=== PATIENT | male | born 1960 | race Caucasian/White ===

== ENCOUNTER 2017-09-19 16:41 | Observation (INO) | payer SELFPAY ==
--- NOTE | 2017-09-19 16:37 | EDPHY ---
H & P HPI/ROS: CHIEF COMPLAINT: Syncope vs. Seizure HISTORY OF PRESENT ILLNESS: This patient is a 57 year old male arriving via EMS for evaluation of a possible seizure or syncopal episode shortly prior to arrival. He was at his mother's service and stood abruptly with a yelp, then fell to the ground unresponsive. Witnesses describe some seizure-like activity. On EMS arrival, the patient had GCS of 9, minimal purposeful movements. EMS did not witness any seizure activity. Per friends at the scene, the patient takes muscle relaxants and was recently prescribed antibiotics for bronchitis. He does not have known history of seizures. EMS placed the patient on 2L O2 by nasal cannula to maintain 94% SpO2. BGL 122. Heart tracing showed sinus tachycardia. EMS crews did not observe any trauma from the patient's fall. HPI primarily obtained via EMS report. Further HPI unobtainable due to patient presentation. REVIEW OF SYSTEMS: A 10 point review of systems was performed and is negative with the exception of the elements mentioned in the history of present illness. Past Medical/Surgical History: Prior T12 compression fx Social History: Visiting from [place]. Brother at bedside. Occasional alcohol, no drugs Physical Exam: General Appearance: Alert. See neurologic findings. Eyes: Pupils equal and round, no conjunctival pallor or injection ENT, Mouth: Mucous membranes moist Neck: Normal inspection Respiratory: Lungs are clear to auscultation Cardiovascular: Regular rate and rhythm Gastrointestinal: Abdomen is soft and non-tender Neurological: Does not follow commands. Does not look at me when I talk. Moves all extremities. Skin: Warm and dry, no rash Extremities: Nontender, no pedal edema Psychiatric: Mood and affect normal Constitutional: Initial Vital Signs Temperature (C) 36.6 C 09/19/17 16:41 Heart Rate 97 09/19/17 16:41 Respiratory Rate 16 09/19/17 16:41 Blood Pressure 124/97 H 09/19/17 16:41 O2 Sat (%) 93 09/19/17 16:41 O2 Delivery Mode Blowby O2 (L/minute) 2 Allergies/Adverse Reactions: No Known Allergies Allergy (Unverified 09/19/17 19:03) Home Medications: Medication Instructions Recorded NK [No Known Home Meds] 09/19/17 Medical Decision Making - Diagnostics EKG Interpretation: EKG interpreted by me reveals sinus rhythm, rate 99, LVH. Interpretation: sinus rhythm. Imaging Results: Imaging Impressions Head CT 09/19/17 16:48 Impression: There is no acute intracranial abnormality identified on this unenhanced CT evaluation. If there is further clinical concern regarding the patient's symptoms, MR imaging is suggested, if not otherwise contraindicated. Findings were discussed with LU MALDONADO MD at 17:45, on 09/19/2017. Chest X-Ray 09/19/17 17:00 Impression: 1. There is no focal infiltrate or abnormal cardiac configuration. 2. Mild T4 and moderate T12 compression deformities. Clinical correlation is suggested. Chest/Thorax CTA 09/19/17 18:40 Impression: 1. There is no CT evidence for pulmonary artery embolic disease. 2. Mild posterobasilar subsegmental atelectasis. 3. Old mild T4 and moderate T12 compression fracture deformities. Findings were discussed with LU MALDONADO MD at 19:13, on 09/19/2017. Imaging: Discussed imaging studies w/ call center coordinator Radiologist, I viewed and interpreted images myself ED Course/Re-evaluation: 16:40 Met EMS at bedside. 16:46 Bedside EKG shows sinus rhythm. 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 On exam, the patient is alert but does not follow commands or look at me when I talk. IV established. Plan for CT head, labs including CBC, chemistries. 16:55 Patient's brother at bedside. His story concurs with the EMS report: The patient was at back of the judaism and stood with a loud exclamation, then fell stiffly face-first onto the floor and had witnessed seizure activity. The patient drove from [place] one week ago for the services. He was ill at that time with cold symptoms and began taking antibiotics Sunday. He did not seem to be getting better, and has had a raspy cough and high fever. His brother is unsure if he was tested for influenza. Plan for chest x-ray, flu swab. 1800: pt back to normal mental status, answers questions appropriately. Non- toxic appearing, neck supple, meningitis/encephalitis considered, but I doubt, given lack of HANSON, afebrile, normal neuro exam and normal mental status. 1830: CXR d/w pt. he has a known T12 compression fx. Also has new pain between scapulas, query new T4 compression fx. D-dimer elevated at 2.56. Given elevated d-dimer, SOB, will order CTA chest, will eval for comp fx as well. 19:[address] Will, radiologist. CTA negative for PE or other acute processes. T12 and T4 fractures are both old. 19:34 Reassessed patient. He remains at his normal mental status and is well appearing. Plan to d/c home in good condition. He plans to remain in [place] for several weeks, so I provided a local neurology referral. He understands he may not drive until followup with neuro. Further followup and return precautions discussed. He is comfortable with this plan. 19:45 As patient was getting ready for d/c, he had a second seizure. He fell forward from a seated position, striking his face on the ground. Nasal abrasion , small epistaxis, stopped quickly. He will be admitted to the hospital. Suction and airway management, oxygen placed. Per brother, he went to the bathroom and when he returned, the patient screamed and was siting in chair, fell forward. Keppra 1gm IV given. 20:07 Consulted with hospitalist service. Dr. Johnston accepts admission for seizure. 2049: still post-ictal, vital signs normal. He had a prolonged post-ictal period after the first seizure, I suspect he'll have a prolonged post-ictal period again. Differential Diagnosis: Differential diagnosis includes though it is not limited to status epilepticus, hypoglycemia, intracranial hemorrhage, CVA, benzodiazepine withdrawal, alcohol withdrawal, epilepsy, encephalitis. Critical Care Time: I spent a total of 35 minutes of critical care time in obtaining history, performing a physical exam, bedside monitoring of interventions, collecting and interpreting tests and discussion with consultants but not including time spent performing procedures. Organ at risk: brain - Data Points Laboratory Results: Laboratory Results 09/19/17 16:49 09/19/17 16:49 09/19/17 09/19/17 09/19/17 18:04 17:05 16:49 WBC RBC Hgb POC Hgb Hct POC Hct MCV MCH MCHC RDW Plt Count MPV Neut % (Auto) Lymph % (Auto) [place] % (Auto) Eos % (Auto) Baso % (Auto) Nucleat RBC Rel Count Absolute Neuts (auto) Absolute Lymphs (auto) Absolute Monos (auto) Absolute Eos (auto) Absolute Basos (auto) Absolute Nucleated RBC Immature Gran % Seg Neutrophils % Band Neutrophils % Lymphocytes % Monocytes % Eosinophils % Immature Gran # Absolute Seg Neuts Absolute Band Neuts Absolute Lymphocytes Absolute Monocytes Absolute Eosinophils RBC/WBC/PLT Morphology Platelet Estimate D-Dimer 2.56 ug/mLFEU H ug/mLFEU (0.00-0.50) POC Sodium Sodium 147 mEq/L H mEq/L (135-145) POC Potassium Potassium 4.2 mEq/L mEq/L (3.5-5.2) POC Chloride Chloride 101 mEq/L mEq/L (97-110) Carbon Dioxide 12 mEq/l L mEq/l (22-31) Anion Gap 34 mEq/L H mEq/L (8-16) POC BUN BUN 25 mg/dL H mg/dL (7-23) Creatinine 1.2 mg/dL mg/dL (0.7-1.3) POC Creatinine Estimated GFR > 60 Glucose 117 mg/dL H mg/dL (70-100) POC Glucose Calcium 10.2 mg/dL mg/dL (8.5-10.4) Nasal Influenza A PCR NEGATIVE FOR FLU A (NEGATIVE) Nasal Influenza B PCR NEGATIVE FOR FLU B (NEGATIVE) 09/19/17 09/19/17 16:49 16:40 WBC 12.87 10^3/uL H 10^3/uL (3.80-9.50) RBC 5.88 10^6/uL 10^6/uL (4.40-6.38) Hgb 16.9 g/dL g/dL (13.7-17.5) POC Hgb 16.7 gm/dL gm/dL (13.7-17.5) Hct 51.3 % H % (40.0-51.0) POC Hct 49 % % (40-51) MCV 87.2 fL fL (81.5-99.8) MCH 28.7 pg pg (27.9-34.1) MCHC 32.9 g/dL g/dL (32.4-36.7) RDW 12.3 % % (11.5-15.2) Plt Count 250 10^3/uL 10^3/uL (150-400) MPV 10.7 fL fL (8.7-11.7) Neut % (Auto) Not Reported Lymph % (Auto) Not Reported [place] % (Auto) Not Reported Eos % (Auto) Not Reported Baso % (Auto) Not Reported Nucleat RBC Rel Count 0.0 % % (0.0-0.2) Absolute Neuts (auto) Not Reported Absolute Lymphs (auto) Not Reported Absolute Monos (auto) Not Reported Absolute Eos (auto) Not Reported Absolute Basos (auto) Not Reported Absolute Nucleated RBC 0.00 10^3/uL 10^3/uL (0-0.01) Immature Gran % Not Reported Seg Neutrophils % 33 % % Band Neutrophils % 9 % % Lymphocytes % 47 % % Monocytes % 9 % % Eosinophils % 2 % % Immature Gran # Not Reported Absolute Seg Neuts 4.25 10^/uL 10^/uL (1.70-6.50) Absolute Band Neuts 1.16 10^3/uL H 10^3/uL (0.00-0.70) Absolute Lymphocytes 6.05 10^3/uL H 10^3/uL (1.00-3.00) Absolute Monocytes 1.16 10^3/uL H 10^3/uL (0.30-0.80) Absolute Eosinophils 0.26 10^3/uL 10^3/uL (0.03-0.40) RBC/WBC/PLT Morphology NORMAL (NORMAL) Platelet Estimate ADEQUATE (ADEQ) D-Dimer POC Sodium 143 mEq/L mEq/L (135-145) Sodium POC Potassium 3.6 mEq/L mEq/L (3.3-5.0) Potassium POC Chloride 105 mEq/L mEq/L (97-110) Chloride Carbon Dioxide Anion Gap POC BUN 30 mg/dL H mg/dL (7-23) BUN Creatinine POC Creatinine 1.1 mg/dL mg/dL (0.7-1.3) Estimated GFR Glucose POC Glucose 115 mg/dL H mg/dL (70-100) Calcium Nasal Influenza A PCR Nasal Influenza B PCR Medications Given: Discontinued Medications Sodium Chloride (Ns) 1,000 mls @ 0 mls/hr IV ONCE ONE; Wide Open PRN Reason: Protocol Stop: 09/19/17 17:11 Last Admin: 09/19/17 17:16 Dose: 1,000 mls Levetiracetam 1,000 mg/ Sodium (Chloride) 110 mls @ 440 mls/hr IV EDNOW ONE Stop: 09/19/17 20:02 Last Admin: 09/19/17 20:05 Dose: 110 mls Point of Care Test Results: 09/19/17 16:40 POC Sodium 143 POC Potassium 3.6 POC Chloride 105 POC BUN 30 H POC Creatinine 1.1 POC Glucose 115 H Departure - Departure Disposition: [facility] Inpatient Acute Clinical Impression: New onset seizure Condition: Fair Report Scribed for: Lu Maldonado Report Scribed by: Saniya Bustamante Date of Report: 09/19/17 Time of Report: 16:36 Physician Review and Approval Statement: 09/19/17 16:37 Portions of this note were transcribed by a certified medical asst. I personally performed a history, physical exam, medical decision making, and confirmed accuracy of information the transcribed note.
--- NOTE | 2017-09-19 16:50 | CPEKG ---
Heart Rate: 99 RR Interval: 606 P-R Interval: 168 QRSD Interval: 98 QT Interval: 372 QTC Interval: 478 P [place]: 44 QRS [place]: -19 T Wave [place]: 5 EKG Severity - ABNORMAL ECG - EKG Impression: SINUS RHYTHM EKG Impression: PROBABLE LEFT ATRIAL ABNORMALITY EKG Impression: LEFT VENTRICULAR HYPERTROPHY EKG Impression: BORDERLINE PROLONGED QT INTERVAL Electronically Signed By: Lu Maldonado 19-Sep-2017 17:04:49
[2017-09-19 17:01] LABS: PLATELET COUNT 250 10^3/uL (150-400)
[2017-09-19] MEDS ORDERED: NS 1,000 ML IV ONE (17:10)
[2017-09-19] MEDS ORDERED: IOPAMIDOL (ISOVUE 370) 100 ML BTL IV ONE (18:44)
[2017-09-19] MEDS ORDERED: LORazepam 2 MG/ML INJ ONE (19:46)
[2017-09-19] MEDS ORDERED: levETIRAcetam 1,000 MG in NS 100 ML IV ONE (19:48)
[2017-09-19] MEDS ORDERED: PROTOCOL MAGNESIUM 1 DOSE IV PRN (20:50)
[2017-09-19] MEDS ORDERED: PROTOCOL POTASSIUM 1 DOSE MISC PRN (20:50)
[2017-09-19] MEDS ORDERED: LORazepam 2 MG/ML INJ IVP PRN (20:53)
[2017-09-19] MEDS ORDERED: ACETAMINOPHEN 325 MG TAB PO PRN (20:55)
[2017-09-19] MEDS ORDERED: NS 1,000 ML IV SCH (21:00)
--- NOTE | 2017-09-19 21:21 | PDGENHP ---
History and Physical - Chief Complaint seizure - History of Present Illness This patient is a 57 year old male who had a witnessed seizure while a his mother's service. He was postictal in the E.D. and after he returned to baseline, he was about to be discharged and had another generalized seizure lasting 4 minutes in the E.D. Keppra IV was given. About a week ago he was treated for bronchitis with Doxycycline and he had been having some back discomfort and was started on muscle relaxants. Unfortunately the pt is still confused and hx is obtained from the pts brother and his nieces. He is awake. He does not have any hx of ETOH use, no urinary sx's, no cv sx's, does not feel SOB any more. CT brain was negative. He denies HANSON. His neck was felt to be supple in the E.D. He does not have focal weakness there was no e/o of hypoglycemia, or electrolyte abnormality. Mg has not been checked. UTOX has not been checked. Past Medical/Surgical History: Prior T12 compression fx, shoulder surgery x 2, no chronic medical conditions Social History: No tobacco or ETOH, no illicits FmHx: No hx of seizure d/o History Information - Allergies/Home Medication List Allergies/Adverse Reactions: No Known Allergies Allergy (Unverified 09/19/17 19:03) Home Medications: NK [No Known Home Meds] 09/19/17 [Last Taken Unknown] I have personally reviewed and updated: medical history, social history - Social History Smoking Status: Unknown if ever smoked Review of Systems Review of Systems: ROS: 10pt was reviewed & negative except for what was stated in HPI & below Physical Exam Physical Exam: Temp Pulse Resp BP Pulse Ox 36.1 C 91 9 L 121/84 H 98 09/19/17 21:02 09/19/17 21:02 09/19/17 21:02 09/19/17 21:02 09/19/17 20:07 O2 (L/minute) 2 Constitutional: no apparent distress, appears nourished Eyes: PERRL, EOMI Ears, Nose, Mouth, Throat: moist mucous membranes, hearing normal Cardiovascular: regular rate and rhythym, No edema Respiratory: no respiratory distress Gastrointestinal: normoactive bowel sounds Genitourinary: no bladder fullness Skin: warm Musculoskeletal: other (neck is supple. he does not appear to have meningeal signs) Neurologic: No AAOx3 Psychiatric: encephalopathic Lymph, Heme, Immunologic: No petechiae Lab Data & Imaging Review 09/19/17 16:49 09/19/17 16:49 WBC 12.87 10^3/uL (3.80-9.50) H 09/19/17 16:49 RBC 5.88 10^6/uL (4.40-6.38) 09/19/17 16:49 Hgb 16.9 g/dL (13.7-17.5) 09/19/17 16:49 POC Hgb 16.7 gm/dL (13.7-17.5) 09/19/17 16:40 Hct 51.3 % (40.0-51.0) H 09/19/17 16:49 POC Hct 49 % (40-51) 09/19/17 16:40 MCV 87.2 fL (81.5-99.8) 09/19/17 16:49 MCH 28.7 pg (27.9-34.1) 09/19/17 16:49 MCHC 32.9 g/dL (32.4-36.7) 09/19/17 16:49 RDW 12.3 % (11.5-15.2) 09/19/17 16:49 Plt Count 250 10^3/uL (150-400) 09/19/17 16:49 MPV 10.7 fL (8.7-11.7) 09/19/17 16:49 Neut % (Auto) Not Reported 09/19/17 16:49 Lymph % (Auto) Not Reported 09/19/17 16:49 [place] % (Auto) Not Reported 09/19/17 16:49 Eos % (Auto) Not Reported 09/19/17 16:49 Baso % (Auto) Not Reported 09/19/17 16:49 Nucleat RBC Rel Count 0.0 % (0.0-0.2) 09/19/17 16:49 Absolute Neuts (auto) Not Reported 09/19/17 16:49 Absolute Lymphs (auto) Not Reported 09/19/17 16:49 Absolute Monos (auto) Not Reported 09/19/17 16:49 Absolute Eos (auto) Not Reported 09/19/17 16:49 Absolute Basos (auto) Not Reported 09/19/17 16:49 Absolute Nucleated RBC 0.00 10^3/uL (0-0.01) 09/19/17 16:49 Immature Gran % Not Reported 09/19/17 16:49 Seg Neutrophils % 33 % 09/19/17 16:49 Band Neutrophils % 9 % 09/19/17 16:49 Lymphocytes % 47 % 09/19/17 16:49 Monocytes % 9 % 09/19/17 16:49 Eosinophils % 2 % 09/19/17 16:49 Immature Gran # Not Reported 09/19/17 16:49 Absolute Seg Neuts 4.25 10^/uL (1.70-6.50) 09/19/17 16:49 Absolute Band Neuts 1.16 10^3/uL (0.00-0.70) H 09/19/17 16:49 Absolute Lymphocytes 6.05 10^3/uL (1.00-3.00) H 09/19/17 16:49 Absolute Monocytes 1.16 10^3/uL (0.30-0.80) H 09/19/17 16:49 Absolute Eosinophils 0.26 10^3/uL (0.03-0.40) 09/19/17 16:49 RBC/WBC/PLT Morphology NORMAL (NORMAL) 09/19/17 16:49 Platelet Estimate ADEQUATE (ADEQ) 09/19/17 16:49 D-Dimer 2.56 ug/mLFEU (0.00-0.50) H 09/19/17 18:04 POC Sodium 143 mEq/L (135-145) 09/19/17 16:40 Sodium 147 mEq/L (135-145) H 09/19/17 16:49 POC Potassium 3.6 mEq/L (3.3-5.0) 09/19/17 16:40 Potassium 4.2 mEq/L (3.5-5.2) 09/19/17 16:49 POC Chloride 105 mEq/L (97-110) 09/19/17 16:40 Chloride 101 mEq/L (97-110) 09/19/17 16:49 Carbon Dioxide 12 mEq/l (22-31) L 09/19/17 16:49 Anion Gap 34 mEq/L (8-16) H 09/19/17 16:49 POC BUN 30 mg/dL (7-23) H 09/19/17 16:40 BUN 25 mg/dL (7-23) H 09/19/17 16:49 Creatinine 1.2 mg/dL (0.7-1.3) 09/19/17 16:49 POC Creatinine 1.1 mg/dL (0.7-1.3) 09/19/17 16:40 Estimated GFR > 60 09/19/17 16:49 Glucose 117 mg/dL (70-100) H 09/19/17 16:49 POC Glucose 115 mg/dL (70-100) H 09/19/17 16:40 Calcium 10.2 mg/dL (8.5-10.4) 09/19/17 16:49 Nasal Influenza A PCR NEGATIVE FOR FLU A (NEGATIVE) 09/19/17 17:05 Nasal Influenza B PCR NEGATIVE FOR FLU B (NEGATIVE) 09/19/17 17:05 Assessment & Plan Assessment: #New onset seizure with post ictal state #borderline Long QT syndrome #Leukocytosis #LVH per EKG, ?HTN Plan: observation w/u for etiology, Urine tox, ETOH, Mg, LFT's Neuro consult tomorrow, I have not notified them. Will await recommendations including EEG MRI Will hold off on LP, if recurrence, would obtain IVF Cont Keppra Benzo's PRN
[2017-09-19] MEDS: levETIRAcetam 500 MG in NS 100 ML IV SCH (22:04)
[2017-09-20 05:34] LABS: PLATELET COUNT 157 10^3/uL (150-400)
[2017-09-20 08:02] VITALS: RESP 12
[2017-09-20] MEDS: levETIRAcetam 500 MG in NS 100 ML IV SCH (08:40)
[2017-09-20] MEDS ORDERED: ENOXAPARIN 40 MG/0.4 ML SYR SC SCH (09:00)
--- NOTE | 2017-09-20 12:57 | GCON ---
[f rep st] CONSULTATION NEUROLOGY CONSULTATION. DATE OF CONSULTATION: 09/20/2017 CHIEF COMPLAINT: Seizures. HISTORY OF PRESENT ILLNESS: The patient is a very pleasant 57-year-old gentleman who denies any epilepsy risk factors. He lives in [place] and is visiting [place] for his mother's . He had driven across the country to attend the . He states he has been prescribed Flexeril on-and-off for 10 to 20 years and takes it on a very occasional basis to help him sleep. He thinks he is taking Flexeril 5 mg tablets at bedtime p.r.n. More recently, he was diagnosed with possible bronchitis and put on doxycycline around 3 or 4 days ago and had been taking that daily. He states he has been taking Flexeril around 3-days in a row for sleep due to his bronchitis and the upcoming . He does not think he missed a dose on Sunday night. Then, on Sunday while at the , he suddenly stood up and "yelped" and then fell to the ground and had some sort of convulsive movements. It was not clear at that time whether it was syncope or seizure. He was brought to our emergency department, had an evaluation, which revealed a negative head CT and a bicarbonate of 12, consistent with acute seizure. Tox screen was negative. He was about to be discharged home when he had a second witnessed generalized seizure in the ER and had some abrasions on his face secondary to falling. He was admitted for further evaluation. He was started on Keppra. The patient adamantly denies any other provocative factors in terms of prescribed or non-prescribed medications. He denied any pain medications, antidepressants, etc. He denies drinking any alcohol. He states he is a [employer] [employer], but does not have insurance and has not been seeking medical care. REVIEW OF SYSTEMS: Ten-point Review of Systems was done and only pertinent to the HPI. PAST MEDICAL HISTORY, SOCIAL HISTORY, ALLERGIES, HOME MEDICATIONS: Please see Dr. Johnston's History and Physical. PHYSICAL EXAM: VITAL SIGNS: Temperature 36.1, pulse 80, blood pressure 121/ 84. GENERAL: In no acute distress. Very pleasant. NEUROLOGIC: Higher mental function: He is alert, oriented 5/5, and has no aphasia. Cranial nerve exam is normal 2 through 7 and 12. Motor exam is normal to strength and tone in all 4-extremities. Sensory exam is normal to light touch in all 4- extremities. Coordination is normal in the upper extremities. IMPRESSION AND PLAN: 1. Acute seizures. The patient has had two acute seizures in a 24-hour period. At this point, the cause is cryptogenic. He has no epilepsy risk factors. His head CT shows no obvious mass lesions. He denies any other provocative medications, prescribed or non-prescribed. He does not think he missed a dose of Flexeril, which he takes 5 mg p.r.n. at bedtime. This dose in itself would not typically cause any withdrawal seizures or other symptoms. In addition, doxycycline is not typically associated with lowering the seizure threshold. Therefore, I cannot be certain on what caused these two acute seizures at this point. Going forward, he needs to be on indefinite driving restrictions and seizure precautions until he gets back home to [place] and can check in with a Neurologist there regarding local state law for driving regarding seizures. We will discharge him on Keppra 500 mg twice daily until he follows up with a Neurologist in [place]. He will be given a prescription. We discussed potential risks, benefits, and alternatives of Keppra, including moodiness, anger, and suicidal ideation. The previous team had ordered an MRI brain, which we canceled per patient request as he does not have insurance and will be paying for this hospitalization out of pocket. He prefers to have the MRI brain and EEG at home with a Neurologist in [place]. He thinks he can get medical care through the [facility] there. Certainly, that would be ideal for the patient as these tests are not needed on an emergent basis. He will stay on the Keppra until he follows up with a Neurologist in [place]. He will have his daughters drive his car home for him so he can follow the law regarding driving restrictions. No further recommendations. He will likely discharge later today. We will sign off and follow up as needed. Please do not hesitate to call with any questions or change in Neurologic status with this patient. Fifty total minutes floor time today reviewing records, imaging, direct counseling with the patient and coordination of care. /[id number]/MODL MTDD
[2017-09-20 13:14] VITALS: BP 120/84; PULSE 78; TEMP 97.8; O2SAT 98
--- NOTE | 2017-09-20 14:13 | GDS ---
[f rep st] DISCHARGE SUMMARY DISCHARGE DIAGNOSIS: Seizure. CONSULTATIONS: Dr. Conway of Neurology. STUDIES AND PROCEDURES DONE: 1. CT of the head. 2. CT angio of the chest. PHYSICAL EXAMINATION: GENERAL: The patient is alert. VITAL SIGNS: Afebrile at 36.6, pulse is 78, respiratory rate 12, blood pressure is 120/84. He is saturating greater than 90% on room air. I have seen and evaluated the patient on the day of discharge. HOSPITAL COURSE: The patient is a 57-year-old male, who presented to the emergency room with sudden onset of seizure activity. He was evaluated during this hospital course with CT angio of the chest, as well as CT of his head. He did receive a consultation from Neurology, Dr. Conway. He has been initi ated on Keppra and will continue this in the outpatient setting. Etiology of his seizures is unclear at this time. The patient has been recommended to discontinue any other medications that he may be taking and to follow up in the outpatient setting with a neurologist of his choice. The patient is n ot from [place] and would like to continue his evaluation at home in [place]. Again, he has been o ffered continued evaluation with MRI and other studies during this hospitalization, but wishes to def er these until he can return home to [place]. He has been instructed that he is not allowed to driv e for 90 days, and he must continue his Keppra outside the hospital. He states that he understands t his, and he is in agreement with this plan. There are no pending studies. DISCHARGE MEDICATIONS: I have provided him a prescription for Keppra 500 mg p.o. b.i.d., #60. DISPOSITION: He will be discharged to his aunt's house where he will stay until plans can be arrange d for him to be driven back to [place] where he normally resides. DISCHARGE INSTRUCTIONS: He has been instructed to return to the emergency room if his symptoms do no t continue to improve or he has further seizure activity. I have discussed the patient's disposition with Dr. Conway of Neurology, who is in agreement with this p asiya. /[id number]/MODL
--- NOTE | 2017-09-21 10:09 | ASMTCMCOM ---
CM Note CM Note Notes: Met with patient regarding discharge plan of care. Patient here visiting from [place], staying with family (Aunt and brother live locally). Patient states he plans on staying with family upon discharge and denies any further needs at home. Financial Services on floor to meet with patient, patient only has Medicare A. Also spoke with patients aunt and spoke with brother via phone to answer next step questions. Patient has good family support and will discharge home today. Discussed case with OPERATING ROOM COORDINATOR and primary RN. Case Management available for any further needs. Date Signed: 09/20/2017 02:07 PM Electronically Signed By:America Woods
== END 2017-09-20 16:11 | disposition home or self-care (01) ==
LOC: F3N 20:52
PROVIDERS: ADMIT Family Medicine; ATTEND Family Medicine
DX: R56.9 Unspecified convulsions (principal); I45.81 Long QT syndrome
CPT/HCPCS: 80307; 82947-QW; 92523-GN; 96374; G0378; G0480; J1650; J1953; J2060; Q9967